=== PATIENT | female | born 1995 | race African-American/Black ===

== ENCOUNTER 2017-03-20 23:23 | Emergency (ER) | payer MEDICAID ==
[~2017-03-20] VITALS: Ht 162.6 cm; Wt 56.0 kg
[2017-03-20 23:26] VITALS: BP 135/89; PULSE 92; RESP 18
--- NOTE | 2017-03-20 23:50 | PD ---
HPI Chief Complaint: Altered Mental Status Time Seen by Provider: 23:29 Travel History International Travel<30 days: No Contact w/Intl Traveler<30days: No Traveled to known affect area: No History of Present Illness HPI This is a 21-year-old female who was seen earlier tonight at [facility] diagnosed with UTI, who presents here after her father states that she was acting not herself. According to the paramedics they have run on this patient several times and she does have some psychiatric issues. The patient is not giving us any history on psychiatric diagnoses. Patient is telling us that her name is douglas hampton and not missed Samir Farrell, her real name. There is no reported headache. She does state that she was having urinary symptoms. There are no other complaints time my examination. PFSH Past Medical History Diminished Hearing: No Genitourinary: Yes (uti) Psychiatric: Yes Immunizations Current: Yes ?: Unknown : 1 Para: 0 Miscarriage: 1 : 0 Past Surgical History Surgical History: No Previous Surgery Social History Alcohol Use: No Tobacco Use: No Substance Use: Yes (marijuana, mollies) Allergies-Medications (Allergen,Severity, Reaction): Coded Allergies: No Known Allergies (Unverified , 04/08/15) Reported Meds & Prescriptions Reported Meds & Active Scripts Active No Active Prescriptions or Reported Medications Review of Systems ROS Limitations: Uncooperative, Poor Historian General / Constitutional: No: Fever Eyes: No: Diploplia, Blurred Vision HENT: No: Headaches, Lightheadedness Cardiovascular: No: Chest Pain or Discomfort, Palpitations Respiratory: No: Cough, Shortness of Breath Gastrointestinal: No: Nausea, Vomiting, Abdominal Pain Genitourinary: Positive: Frequency, Dysuria, Flank Pain Musculoskeletal: Positive: Pain (flank pain), No: Weakness, Edema Neurologic: Positive: Change in Mentation, No: Weakness, Dizziness, Headache, Seizures Psychiatric: Positive: Disorder of Thought, Mood Disorder, Substance Abuse ( reports Zahraa and marijuana), No: Homicidal Ideation Physical Exam Narrative GENERAL: Well-developed well-nourished female in no acute respiratory distress. SKIN: Focused skin assessment warm/dry. HEAD: Atraumatic. Normocephalic. EYES: Pupils equal and round. No scleral icterus. No injection or drainage. ENT: No nasal bleeding or discharge. Mucous membranes pink and moist. NECK: Trachea midline. Supple. CARDIOVASCULAR: Regular rate and rhythm. No murmur appreciated. RESPIRATORY: No accessory muscle use. Clear to auscultation. Breath sounds equal bilaterally. GASTROINTESTINAL: Abdomen soft, non-tender, nondistended. Hepatic and splenic margins not palpable. MUSCULOSKELETAL: No obvious deformities. No clubbing. No cyanosis. No edema. NEUROLOGICAL: Awake and alert. No obvious cranial nerve deficits. Motor grossly within normal limits. Normal speech. Patient does not know day of week or month. She states though Jose was the president. PSYCHIATRIC: Inappropriate affect. Insight and judgment poor. Data Data Last Documented VS Vital Signs Date Time Temp Pulse Resp B/P (MAP) Pulse Ox O2 Delivery O2 Flow Rate FiO2 03/20/17 23:30 99 Nasal Cannula 03/20/17 23:26 92 18 135/89 (104) Orders Orders Complete Blood Count With Diff (03/21/17 00:23) Comprehensive Metabolic Panel (03/21/17:23) Urinalysis - C+S If Indicated (03/21/17:23) Ed Urine Pregnancytest Poc (03/21/17 00:23) Psych Screen (03/21/17:23) Drug Screen, Random Urine (03/21/17:23) Alcohol (Ethanol) (03/21/17:23) Labs Laboratory Tests Test 03/21/17 00:30 03/21/17 01:00 White Blood Count 4.8 TH/MM3 Red Blood Count 4.29 MIL/MM3 Hemoglobin 13.2 GM/DL Hematocrit 39.1 % Mean Corpuscular Volume 91.1 FL Mean Corpuscular Hemoglobin 30.7 PG Mean Corpuscular Hemoglobin Concent 33.7 % Red Cell Distribution Width 12.1 % Platelet Count 170 TH/MM3 Mean Platelet Volume 10.9 FL Neutrophils (%) (Auto) 50.2 % Lymphocytes (%) (Auto) 35.3 % Monocytes (%) (Auto) 10.7 % Eosinophils (%) (Auto) 2.8 % Basophils (%) (Auto) 1.0 % Neutrophils # (Auto) 2.4 TH/MM3 Lymphocytes # (Auto) 1.7 TH/MM3 Monocytes # (Auto) 0.5 TH/MM3 Eosinophils # (Auto) 0.1 TH/MM3 Basophils # (Auto) 0.0 TH/MM3 CBC Comment DIFF FINAL Differential Comment Blood Urea Nitrogen 12 MG/DL Creatinine 0.87 MG/DL Random Glucose 84 MG/DL Total Protein 8.3 GM/DL Albumin 3.8 GM/DL Calcium Level 8.5 MG/DL Alkaline Phosphatase 113 U/L Aspartate Amino Transf (AST/SGOT) 11 U/L Alanine Aminotransferase (ALT/SGPT) 13 U/L Total Bilirubin 1.2 MG/DL Sodium Level 138 MEQ/L Potassium Level 3.5 MEQ/L Chloride Level 102 MEQ/L Carbon Dioxide Level 28.6 MEQ/L Anion Gap 7 MEQ/L Estimat Glomerular Filtration Rate 100 ML/MIN Ethyl Alcohol Level LESS THAN 3 MG/DL Urine Color YELLOW Urine Turbidity CLEAR Urine pH 5.5 Urine Specific [place] 1.024 Urine Protein TRACE mg/dL Urine Glucose (UA) NEG mg/dL Urine Ketones TRACE mg/dL Urine Occult Blood NEG Urine Nitrite NEG Urine Bilirubin NEG Urine Urobilinogen 2.0 MG/DL Urine Leukocyte Esterase NEG Urine RBC 3 /hpf Urine WBC 1 /hpf Urine Squamous Epithelial Cells 1 /hpf Urine Amorphous Sediment RARE Urine Mucus FEW /lpf Microscopic Urinalysis Comment CULT NOT INDICATED Urine Opiates Screen NEG Urine Barbiturates Screen NEG Urine Amphetamines Screen NEG Urine Benzodiazepines Screen NEG Urine Cocaine Screen NEG Urine Cannabinoids Screen NEG MDM Medical Decision Making Medical Screen Exam Complete: Yes Emergency Medical Condition: Yes Differential Diagnosis Mood disorder versus intoxication versus metabolic arrangement Narrative Course 21-year-old female who presents after being evaluated at [facility] diagnosed with UTI. Cording to the paramedics, she started acting bizarre while out in the parking lot. They state she is well-known to the [facility] crew as she presents to the hospital with psychiatric issues. She reports that her name is Christian hampton which is not her name. The patient has a very bizarre affect. Laboratory tests are negative for acute findings. She'll be medically cleared for psychiatric evaluation. Diagnosis Primary Impression: Acute psychosis Additional Impression: medically clear Scripts No Active Prescriptions or Reported Meds Temo Spann MD Mar 20, 2017 23:50
[2017-03-21 00:46] LABS: AUTOMATED NEUTROPHIL # 2.4 TH/MM3 (1.8-7.7); EOSINOPHIL # 0.1 TH/MM3 (0-0.4); EOSINOPHIL % 2.8 % (0.0-4.0); HEMATOCRIT 39.1 % (35.0-46.0); HEMO FLAGS DIFF FINAL; LYMPH % 35.3 % (9.0-44.0); LYMPHOCYTE # 1.7 TH/MM3 (1.0-4.8); MEAN CELL VOLUME 91.1 FL (80.0-100.0); MEAN CORPUSCULAR HEMOGLOBIN 30.7 PG (27.0-34.0); MEAN CORPUSCULAR HGB CONC 33.7 % (32.0-36.0); MONO % 10.7 % (0.0-8.0); NEUT % 50.2 % (16.0-70.0); PLATELET COUNT 170 TH/MM3 (150-450); RED BLOOD COUNT 4.29 MIL/MM3 (4.00-5.30); RED CELL DISTRIBUTION WIDTH 12.1 % (11.6-17.2); WHITE BLOOD COUNT 4.8 TH/MM3 (4.0-11.0)
[2017-03-21 01:01] LABS: ALT (GPT) 13 U/L (9-42); ANION GAP 7 MEQ/L (5-15); AST (GOT) 11 U/L (16-38); BICARBONATE 28.6 MEQ/L (21.0-32.0); BLOOD UREA NITROGEN 12 MG/DL (7-18); CHLORIDE 102 MEQ/L (98-107); GLOMERULAR FILTRATION RATE 100 ML/MIN (>89); POTASSIUM 3.5 MEQ/L (3.5-5.1); SODIUM (NA) 138 MEQ/L (136-145)
[2017-03-21 01:03] LABS: ALKALINE PHOSPHATASE 113 U/L (45-117); TOTAL BILIRUBIN ADULT 1.2 MG/DL (0.2-1.0)
[2017-03-21 01:04] LABS: ALCOHOL LESS THAN 3 MG/DL (0-5)
[2017-03-21 02:33] LABS: BLOOD, URINE NEG (NEG); COMMENT (UR) CULT NOT INDICATED; CULTURE IF INDICATED CULT NOT INDICATED; GLUCOSE,URINE NEG (NEG); KETONE, URINE TRACE mg/dL (NEG); MUCUS URINE FEW /lpf (OCC); NITRITE,URINE NEG (NEG); PH, URINE 5.5 (5.0-8.5); SQUAMOUS EPITHELIAL CELL URINE 1 /hpf (0-5); URINE COLOR YELLOW (YELLW/STRAW)
[2017-03-21 08:00] VITALS: BP 124/85; PULSE 82; RESP 16; TEMP 98.2; O2SAT 99
== END 2017-03-21 10:52 | disposition left against medical advice (07) ==
LOC: NEPE 23:23
DX: Z02.89 Encounter for other administrative examinations (principal); F23 Brief psychotic disorder; Z87.448 Personal history of other diseases of urinary system; Z86.59 Personal history of other mental and behavioral disorders
CPT/HCPCS: 80053; 80307; 81001; 84703; 85025; 99283

== ENCOUNTER 2017-03-26 05:04 | Emergency (ER) | payer MEDICAID, OTHER ==
[2017-03-26] MEDS ORDERED: HALOPERIDOL LACTATE 5 MG/ML AMP IM ONE (05:30)
[2017-03-26] MEDS ORDERED: LORazepam 2 MG/ML VIAL IM ONE (05:30)
--- NOTE | 2017-03-26 05:45 | PD ---
HPI Chief Complaint: Romero act Time Seen by Provider: 05:08 Travel History International Travel<30 days: No Contact w/Intl Traveler<30days: No Traveled to known affect area: No History of Present Illness HPI 21-year-old black female presents to emergency department under Romero act by PD. According to the Romero act the patient had gone to the neighbors and notified them she was hearing voices telling her to stab her parents. The patient here admits to having auditory hallucinations. She states she's heard voices for a long period of time. She also admits to suicidal ideation. She does not elaborate on any plan. The patient was recently seen here in the emergency department under Romero for psychosis. The patient is unreliable. She laughs inappropriately and answers yes to nearly all questions. The patient denies drugs except for marijuana. She denies alcohol and tobacco. Patient is 9 months . She alleges that she does breast-feed intermittently. She states that she has not had a period since her delivery. She denies Depo-Provera. PFS Past Medical History Medical History: Unable to Obtain Diminished Hearing: No Genitourinary: Yes (uti) Psychiatric: Yes Immunizations Current: Yes : 1 Para: 0 Miscarriage: 1 : 0 Past Surgical History Surgical History: Unable to Obtain Social History Alcohol Use: No Tobacco Use: No Substance Use: Yes (marijuana, mollies) Allergies-Medications (Allergen,Severity, Reaction): Coded Allergies: No Known Allergies (Unverified , 04/08/15) Reported Meds & Prescriptions Reported Meds & Active Scripts Active No Active Prescriptions or Reported Medications Review of Systems ROS Limitations: Psychotic Physical Exam Narrative GENERAL: Well-nourished, well-developed patient. The patient laughs inappropriately in the examination room. SKIN: Warm and dry. HEAD: Normocephalic and atraumatic. EYES: No scleral icterus. No injection or drainage. ENT: No nasal drainage noted. Mucous membranes pink. Airway patent. NECK: Supple, trachea midline. Moves head freely without obvious discomfort. CARDIOVASCULAR: Regular rate and rhythm without murmurs, gallops, or rubs. RESPIRATORY: Breath sounds equal bilaterally. No accessory muscle use. GASTROINTESTINAL: Abdomen soft, non-tender, nondistended. EXTREMITIES: No cyanosis or edema. BACK: Nontender without obvious deformity. No CVA tenderness. NEURO: Patient is alert and oriented. no sensorimotor deficits. Nonfocal. Normal speech. PSYCH: Patient is acutely delusional.. Positive auditory hallucinations. Inappropriate affect poor insight and judgment. Data Data Orders Orders Complete Blood Count With Diff (03/26/17 05:17) Comprehensive Metabolic Panel (03/26/17 05:17) Urinalysis - C+S If Indicated (03/26/17 05:17) Ed Urine Pregnancytest Poc (03/26/17 05:17) Psych Screen (03/26/17 05:17) Haloperidol Inj (Haldol Inj) (03/26/17 05:30) Lorazepam Inj (Ativan Inj) (03/26/17 05:30) Restraints Violent (03/26/17 05:17) Drug Screen, Random Urine (03/26/17 05:17) Alcohol (Ethanol) (03/26/17 05:17) MDM Medical Decision Making Medical Screen Exam Complete: Yes Emergency Medical Condition: Yes Medical Record Reviewed: Yes Differential Diagnosis MDM: High Differential diagnoses: Schizophrenia, schizoaffective disorder, bipolar, anxiety, depression, adjustment reaction, mood disorder NOS, ODD, depressive disorder NOS, dementia, dementia with agitation, psychosis NOS, substance induced mood disorder, intermittent explosive disorder, Asperger syndrome, infection,electrolyte abnormality, malingering. Narrative Course The patient had only and to the examination room for only a minute or 2 when she has noted to attempting to elope. She runs into the hospital followed by PD and security. Patient pulled the fire alarm before being brought back to her room. Patient is medicated with Haldol 10 and Ativan 2 mg IM. Violent restraints both seclusion and locked have been ordered to ensure her safety and the safety of the medical staff.. This is medical clearance for psychiatric admission Diagnosis Primary Impression: Medical clearance for psychiatric admission Scripts No Active Prescriptions or Reported Meds Condition: Stable Fortunato Ac Mar 26, 2017 05:45
[2017-03-26 06:08] LABS: AUTOMATED NEUTROPHIL # 3.9 TH/MM3 (1.8-7.7); BASOPHIL # 0.1 TH/MM3 (0-0.2); BASOPHIL % 0.7 % (0.0-2.0); EOSINOPHIL # 0.1 TH/MM3 (0-0.4); EOSINOPHIL % 1.3 % (0.0-4.0); HEMATOCRIT 41.5 % (35.0-46.0); HEMO FLAGS DIFF FINAL; LYMPH % 49.6 % (9.0-44.0); LYMPHOCYTE # 4.9 TH/MM3 (1.0-4.8); MEAN CORPUSCULAR HEMOGLOBIN 31.1 PG (27.0-34.0); MEAN CORPUSCULAR HGB CONC 33.1 % (32.0-36.0); MONO % 8.3 % (0.0-8.0); NEUT % 40.1 % (16.0-70.0); PLATELET COUNT 226 TH/MM3 (150-450); RED BLOOD COUNT 4.42 MIL/MM3 (4.00-5.30); RED CELL DISTRIBUTION WIDTH 12.2 % (11.6-17.2); WHITE BLOOD COUNT 9.9 TH/MM3 (4.0-11.0)
[2017-03-26 06:23] VITALS: RESP 18
[2017-03-26 06:31] LABS: ALT (GPT) 14 U/L (9-42); ANION GAP 21 MEQ/L (5-15); AST (GOT) 11 U/L (16-38); BICARBONATE 16.5 MEQ/L (21.0-32.0); BLOOD UREA NITROGEN 6 MG/DL (7-18); CHLORIDE 105 MEQ/L (98-107); GLOMERULAR FILTRATION RATE 63 ML/MIN (>89); POTASSIUM 3.1 MEQ/L (3.5-5.1); SODIUM (NA) 142 MEQ/L (136-145)
[2017-03-26 06:39] LABS: ALKALINE PHOSPHATASE 121 U/L (45-117); TOTAL BILIRUBIN ADULT 1.4 MG/DL (0.2-1.0)
[2017-03-26 06:41] LABS: ALCOHOL LESS THAN 3 MG/DL (0-5)
[2017-03-26 16:19] VITALS: BP 117/63; PULSE 81; RESP 16; O2SAT 100
[2017-03-26 22:19] VITALS: BP 98/58; PULSE 101; RESP 18; O2SAT 99
[2017-03-27 06:25] VITALS: BP 100/55; PULSE 64; RESP 17; O2SAT 99
--- NOTE | 2017-03-27 08:58 | PD ---
History of Present Illness Chief Complaint: Psychiatric Symptoms Time Seen by Provider: 08:45 Travel History International Travel<30 Days: No Contact w/Intl Traveler<30days: No Known affected area: No Legal Status Legal Status: Romero Act Romero Act Signed By: Trino Jamison Romero Act Comment: 2016 @ 0457 History of Present Illness: History of Present Illness 21-year-old black female with no previous psychiatric history who presents under a Romero act presents to emergency department by PD. According to the Romero act the patient had gone to the neighbors and notified them she was hearing voices telling her to stab her parents. She admitted to neighbors that she was hearing voices and that she had been hearing them for a long time. She also admitted to suicidal ideation. The patient was recently seen here in the emergency department under Romero for psychosis. The patient is unreliable. Patient was monitored here for extended period of time and has slept for the most part. She received ETO of Haldol and Ativan. Patient this morning is alert, oriented. Speech is clear and logical. States " I was s tressed and I said those things" referring to statements of wanting to stab her family members in their sleep. She attributes statements to feeling overwhelmed with her responsibilities of being a mother to a 9 month old. She denies current hallucinations and does not appear to be internally stimulated. She denies any suicidal or homicidal ideation, intent or plan. She does not exhibit any objective clinical signs of depression. In terms of substance use she admits to marijuana as well as mollies. No toxicology available. Telephone call to her grandmother, Radha Farrell at [phone]. Grandmother states that patient's father is coming to the hospital to pick her up and drive her to [place]. The grandmother also states that the sister has arranged for her to be admitted to a facility there where the sister is the personal care home administrator. Grandmother has no concerns for her safety if she were to be discharged and states that she was aware that the patient was feeling stressed. . PFSH Past Medical History Medical History: Unable to Obtain Diminished Hearing: No Genitourinary: Yes (uti) Psychiatric: Yes Immunizations Current: Yes ?: Not : 1 Para: 0 Miscarriage: 1 : 0 Past Surgical History Surgical History: Unable to Obtain Psychiatric History Psychiatric History Hx Psychiatric Treatment: No hx of previous tx. One previous visit to Ed and dx with acute psychosis History of Inpatient Treatment: No Guns or firearms in home: No Social History Single female who lives with her father. She has a 9 month old child. Hx Alcohol Use: No Hx Tobacco Use: No Hx Substance Use: Yes (marijuana, mollies) Substance Use Type: Marijuana, Other (Mollies) Hx of Substance Use Treatment: No Allergies-Medications (Allergen,Severity, Reaction): Coded Allergies: No Known Allergies (Unverified , 04/08/15) Reported Meds & Prescriptions Reported Meds & Active Scripts Active No Active Prescriptions or Reported Medications Review of Systems Except as stated in HPI: all other systems reviewed are Neg Mental Status Examination Appearance: Appropriate Consciousness: Alert Orientation: x4 Motor Activity: Normal gait Speech: Unremarkable Language: Adequate Fund of Knowledge: Adequate Attention and Concentration: Adequate Memory: Unremarkable Mood: Irritable Affect: Appropriate Thought Process & Associations: Intact Thought Content: Appropriate Hallucination Type: None Delusion Type: None Suicidal Ideation: No Suicidal Plan: No Suicidal Intention: No Homicidal Ideation: No Homicidal Plan: No Homicidal Intention: No Insight: Poor Judgment: Impulsive MDM Medical Decision Making Medical Record Reviewed: Yes Assessment/Plan 21-year-old black female with no previous psychiatric history who presents under a Romero act presents to emergency department by PD. According to the Romero act the patient had gone to the neighbors and notified them she was hearing voices telling her to stab her parents. She admitted to neighbors that she was hearing voices and that she had been hearing them for a long time. She also admitted to suicidal ideation. The patient was recently seen here in the emergency department under [employer] for psychosis. The patient was monitored in [facility] for over 24 hours with no behavioral concerns and no suicidality. She did not present any symptom of psychosis while here. She did receive medication and slept. Patient this morning is alert, oriented. Speech is clear and logical. States " I was s tressed and I said those things" referring to statements of wanting to stab her family members in their sleep. She attributes statements to feeling overwhelmed with her responsibilities of being a mother to a 9 month old. She denies current hallucinations and does not appear to be internally stimulated. She denies any suicidal or homicidal ideation, intent or plan. She does not exhibit any objective clinical signs of depression. Family was contacted . The grandmother is caring for the and they have made plans for the patient to be admitted to a facility in [place] where her sister is the personal care home administrator. The father is driving her there today. She has no concerns for if she were to be discharged from the hospital. The Romero act will be lifted. Discharge to family. Orders Orders Diet Regular Basic (03/26/17 Lunch) Diet Regular Basic (03/26/17 Dinner) Results Vital Signs Date Time Temp Pulse Resp B/P (MAP) Pulse Ox O2 Delivery O2 Flow Rate FiO2 03/27/17 06:25 64 17 100/55 (70) 99 Room Air 03/26/17 22:19 101 18 98/58 (71) 99 Room Air 03/26/17 16:19 81 16 117/63 (81) 100 Room Air Diagnosis Primary Impression: Medical clearance for psychiatric admission Additional Impression: Adjustment disorder Psychiatrically Cleared: Yes Med/ Other Pt Specific Info: No Meds Exist/No RX given Prescriptions No Active Prescriptions or Reported Meds Disposition: DISCHARGE HOME Condition: Stable Problem Qualifiers Additional Impression: Adjustment disorder Qualified Codes: F43.25 - Adjustment disorder with mixed disturbance of emotions and conduct Rosibel Graham Mar 27, 2017 08:58
--- NOTE | 2017-03-27 09:20 | PD ---
Physical Exam Date Seen by Provider: Mar 27, 2017 Time Seen by Provider: 09:19 Narrative 21-year-old female previously medically cleared for psychiatric evaluation has been psychiatrically cleared by psychiatric staff with symptoms of adjustment disorder. She is going be discharged to the care of her father. She is continued to be medically cleared for discharge. Data Data Last Documented VS Vital Signs Date Time Temp Pulse Resp B/P (MAP) Pulse Ox O2 Delivery O2 Flow Rate FiO2 03/27/17 06:25 64 17 100/55 (70) 99 Room Air Orders Orders Complete Blood Count With Diff (03/26/17 05:17) Comprehensive Metabolic Panel (03/26/17 05:17) Urinalysis - C+S If Indicated (03/26/17 05:17) Ed Urine Pregnancytest Poc (03/26/17 05:17) Psych Screen (03/26/17 05:17) Haloperidol Inj (Haldol Inj) (03/26/17 05:30) Lorazepam Inj (Ativan Inj) (03/26/17 05:30) Restraints Violent (03/26/17 05:17) Drug Screen, Random Urine (03/26/17 05:17) Alcohol (Ethanol) (03/26/17 05:17) Diet Regular Basic (03/26/17 Breakfast) Diet Regular Basic (03/26/17 Lunch) Diet Regular Basic (03/26/17 Dinner) Labs Laboratory Tests Test 03/26/17 05:25 White Blood Count 9.9 TH/MM3 Red Blood Count 4.42 MIL/MM3 Hemoglobin 13.8 GM/DL Hematocrit 41.5 % Mean Corpuscular Volume 94.0 FL Mean Corpuscular Hemoglobin 31.1 PG Mean Corpuscular Hemoglobin Concent 33.1 % Red Cell Distribution Width 12.2 % Platelet Count 226 TH/MM3 Mean Platelet Volume 10.7 FL Neutrophils (%) (Auto) 40.1 % Lymphocytes (%) (Auto) 49.6 % Monocytes (%) (Auto) 8.3 % Eosinophils (%) (Auto) 1.3 % Basophils (%) (Auto) 0.7 % Neutrophils # (Auto) 3.9 TH/MM3 Lymphocytes # (Auto) 4.9 TH/MM3 Monocytes # (Auto) 0.8 TH/MM3 Eosinophils # (Auto) 0.1 TH/MM3 Basophils # (Auto) 0.1 TH/MM3 CBC Comment DIFF FINAL Differential Comment Blood Urea Nitrogen 6 MG/DL Creatinine 1.31 MG/DL Random Glucose 127 MG/DL Total Protein 8.7 GM/DL Albumin 4.0 GM/DL Calcium Level 8.8 MG/DL Alkaline Phosphatase 121 U/L Aspartate Amino Transf (AST/SGOT) 11 U/L Alanine Aminotransferase (ALT/SGPT) 14 U/L Total Bilirubin 1.4 MG/DL Sodium Level 142 MEQ/L Potassium Level 3.1 MEQ/L Chloride Level 105 MEQ/L Carbon Dioxide Level 16.5 MEQ/L Anion Gap 21 MEQ/L Estimat Glomerular Filtration Rate 63 ML/MIN Ethyl Alcohol Level LESS THAN 3 MG/DL MDM Medical Record Reviewed: Yes Supervised Visit with SANDOR: Yes Narrative Course 21-year-old female previously medically cleared for psychiatric evaluation has been psychiatrically cleared by psychiatric staff with symptoms of adjustment disorder. She is going be discharged to the care of her father. She is continued to be medically cleared for discharge. Diagnosis Primary Impression: Medical clearance for psychiatric admission Patient Instructions: General Instructions Scripts No Active Prescriptions or Reported Meds Disposition: DISCHARGE HOME Condition: Stable Maurisio Perkins Mar 27, 2017 09:20
== END 2017-03-27 10:02 | disposition home or self-care (01) ==
LOC: NEPJ 05:04
DX: Z04.6 Encounter for general psychiatric examination, requested by authority (principal); F29 Unspecified psychosis not due to a substance or known physiological condition; R45.851 Suicidal ideations; R45.850 Homicidal ideations
CPT/HCPCS: 80053; 80307; 84703; 85025; 96372; 99285; J1630; J2060